=== PATIENT | female | born 1955 | race Caucasian/White ===

== ENCOUNTER 2018-09-06 11:06 | Inpatient (IN) | payer OTHER ==
[2018-09-06 11:18] VITALS: BMI 31.9
--- NOTE | 2018-09-06 11:19 | PDOC ---
History of Present Illness - General Chief Complaint: Chest Pain Stated Complaint: CHEST PAIN Time Seen by Provider: 09/06/18 11:19 - History of Present Illness Initial Comments: 09/06/18 11:43 The patient is a 62 year old female with a history of HLD, GERD who presents for evaluation of shortness of breath and chest pressure. The patient is accompanied by family who assist in providing the history. They note a several day history of worsening shortness of breath with associated chest pressure prompting them to present to the patient's primary care provider Dr. Velasquez and was noted to be in afib with RVR and sent to the ED for further evaluation. The patient denies a history of afib and continues to report shortness of breath and chest pressure. She otherwise denies fevers, chills, nausea, vomiting, lightheadedness, abdominal pain, or changes with urination or bowel movements. Past History - Past Medical History Allergies/Adverse Reactions: Allergies Allergy/AdvReac Type Severity Reaction Status Date / Time No Known Allergies Allergy Verified 09/06/18 13:16 Home Medications: Ambulatory Orders Aspirin [ASA -] 81 mg PO DAILY 09/06/18 Atorvastatin Calcium [Lipitor] 20 mg PO DAILY 09/06/18 Pantoprazole Sodium [Protonix] 40 mg PO DAILY 09/06/18 COPD: No - Immunization History Immunization Up to Date: No - Suicide/Smoking/Psychosocial Hx Smoking History: Never smoked Hx Alcohol Use: No Drug/Substance Use Hx: No Review of Systems - Review of Systems Comments:: 09/06/18 11:47 Constitutional: No fevers, chills, fatigue, malaise HEENT: No Rhinorrhea, nasal congestion, visual changes Cardiovascular: Chest pressure. No syncope, palpitations, lightheadedness Respiratory: SOB. No Cough, Hemoptysis, Gastrointestinal: No Abdominal pain, Nausea, Vomiting, Constipation, Diarrhea, Melena Genitourinary: No Dysuria, Frequency, Urgency, Hesitancy, Hematuria, Flank pain Musculoskeletal: No Myalgia, arthralgia Skin: No rashes, itching, bruising, pallor Neurologic: No Headache, Dizziness, Numbness, Weakness, or Tingling Psychiatric: No Hallucinations. No SI or HI *Physical Exam - Vital Signs Last Vital Signs Temp Pulse Resp BP Pulse Ox 98.5 F 133 H 17 134/60 95 09/06/18 11:14 09/06/18 11:14 09/06/18 11:14 09/06/18 11:14 09/06/18 11:14 - Physical Exam Comments: 09/06/18 11:47 General Appearance: Nourished. No Apparent Distress HEENT: No Pharyngeal Erythema, Tonsillar Exudate, Tonsillar Erythema Neck: No Cervical Lymphadenopathy Respiratory/Chest: Lungs Clear, Normal Breath Sounds. No Crackles, Rales, Rhonchi, Wheezing Cardiovascular: Irregularly Irregular Rhythm, Tachycardic Rate. No Murmur, Gallops, Rubs Gastrointestinal/Abdominal: Normal Bowel Sounds, Soft. No Guarding, Rebound, Tenderness Musculoskeletal: No CVA Tenderness Extremity: Normal Capillary Refill Integumentary: Normal Color, Dry, Warm Neurologic: Fully Oriented, Alert, Normal Mood/Affect, Normal Response, Moderate Sedation - Procedure Monitoring Vital Signs: Procedure Monitoring Vital Signs Temperature 98.5 F 09/06/18 11:14 Pulse Rate 133 H 09/06/18 11:14 Respiratory Rate 17 09/06/18 11:14 Blood Pressure 134/60 09/06/18 11:14 O2 Sat by Pulse Oximetry (%) 95 09/06/18 11:14 Heart Score/ECG Review #1 ECG reviewed & interpreted by me at: 11:48 General ECG Interpretation: Normal Intervals, No acute ischemic changes 09/06/18 11:48 Afib with RVR hr 133 ED Treatment Course - LABORATORY CBC & Chemistry Diagram: 09/06/18 11:42 09/06/18 11:42 Medical Decision Making - Critical Care Time Total Critical Care Time (minutes): 35 Critical Care Statement: The care of this patient involved high complexity decision making to prevent further life threatening deterioration of the patient 's condition and/or to evaluate & treat vital organ system(s) failure or risk of failure. - Medical Decision Making 09/06/18 11:48 The patient is a 62 year old female with a history of HLD, GERD who presents for evaluation of shortness of breath and chest pressure. Given the patient's history and physical exam, it is likely the patient's symptoms are due to afib with rvr. We will obtain a cbc, cmp, troponin, bnp, tsh, ua, chest plain film, ekg to evaluate further. We will treat the patient with 10mg iv cardizem and iv fluids and continue to monitor and reassess while here in the ED. 09/06/18 13:43 CBC, cmp, troponin, bnp is unremarkable. Chest plain film is unremarkable. The patient's HR improved to 100 with cardizem and we have treated with an additional 30 mg PO cardizem. We discussed the case with the admitting team who accepted the patient for admission. We will place the patient on a heparin drip due to her new onset afib. *DC/Admit/Observation/Transfer Diagnosis at time of Disposition: New onset a-fib - Discharge Dispostion Condition at time of disposition: Stable Decision to Admit order: Yes - Referrals - Patient Instructions - Post Discharge Activity
--- NOTE | 2018-09-06 11:31 | PDOC ---
Attending Attestation - HPI HPI: 09/06/18 11:42 The patient is a 62 year old female, with a significant past medical history of intermittent Eliquis use ("only when traveling"), who presents to the emergency department sent by Dr. Velasquez for new onset AFib with associated palpitations, SOB, and midsternal chest pressure this morning. She states she has been feeling intermittently more SOB with walking. She reports intermittent chest pressure associated with fast heart beating for about 3 months. She states she sleeps with one pillow, but denies dyspnea while lying flat. She reportedly travels to and from [facility] frequently with her most recent return being . The patient denies headache and dizziness. The patient denies fever, chills, nausea, vomit, diarrhea and constipation. The patient denies dysuria, frequency , urgency and hematuria. Allergies: NKDA PCP: Dr. Emory Wong - Physicial Exam PE: 09/06/18 11:42 GENERAL: The patient is in no acute distress. HEAD: Normal with no signs of trauma. EYES: PERRLA, EOMI, sclera anicteric, conjunctiva clear. ENT: Ears normal, nares patent, oropharynx clear without exudates. Moist mucous membranes. NECK: Normal range of motion, supple without lymphadenopathy, JVD, or masses. LUNGS: Breath sounds equal, clear to auscultation bilaterally. No wheezes, and no crackles. HEART: (+) irregularly irregular. normal S1 and S2 without murmur, rub or gallop. ABDOMEN: Soft, nontender, normoactive bowel sounds. No guarding, no rebound. No masses palpable. EXTREMITIES: Normal range of motion, no edema. No clubbing or cyanosis. No erythema, or tenderness. NEUROLOGICAL: Cranial nerves II through XII grossly intact. Normal speech. No focal neurological deficits. MUSCULOSKELETAL: Back non-tender to palpation, no CVA tenderness SKIN: Warm, Dry, normal turgor, no rashes or lesions noted. - Medical Decision Making 09/06/18 11:42 Documentation prepared by Marcie Pearson, acting as anesthesiology medical doctor for Sandy Solomon MD <Marcie Pearson - Last Filed: 09/06/18 13:13> - Resident Resident Name: Sebastián Boyce - ED Attending Attestation I have performed the following: I have examined & evaluated the patient, The case was reviewed & discussed with the resident, I agree w/resident's findings & plan, Exceptions are as noted - Medical Decision Making 09/06/18 11:31 EKG - Sfib rate of 133 bpm, axis nml, no st elevation or depression, t waves upright 09/06/18 12:17 Laboratory Tests 09/06/18 09/06/18 11:42 11:42 WBC 7.6 Hgb 14.6 Hct 44.9 Plt Count 276 INR 1.10 H HR: low 100s after cardizem IV cardizem po given CTA negative for PE Pt admitted to Dr. Velasquez trend troponins Clinical impression: new onset Afib, initial presentation <Sandy Solomon - Last Filed: 09/08/18 07:45> *DC/Admit/Observation/Transfer <Marcie Pearson - Last Filed: 09/06/18 13:13> - Discharge Dispostion Decision to Admit order: Yes <Sandy Solomon - Last Filed: 09/08/18 07:45> Diagnosis at time of Disposition: New onset a-fib - Discharge Dispostion Condition at time of disposition: Stable
[2018-09-06] MEDS ORDERED: dilTIAZem HCL 50 MG/10 ML - 10 ML VIAL IVPUSH ONE ×2 (11:33→14:26)
[2018-09-06] MEDS ORDERED: SODIUM CHLORIDE 1,000 ML IV STA (11:33)
--- NOTE | 2018-09-06 11:40 | EKG ---
Test Reason : Blood Pressure : / mmHG Vent. Rate : 133 BPM Atrial Rate : 129 BPM P-R Int : 000 ms QRS Dur : 080 ms QT Int : 300 ms P-R-T Axes : 000 041 016 degrees QTc Int : 446 ms ATRIAL FIBRILLATION WITH RAPID VENTRICULAR RESPONSE ABNORMAL ECG WHEN COMPARED WITH ECG OF 06-MAR-1998 11:36, ATRIAL FIBRILLATION HAS REPLACED SINUS RHYTHM VENT. RATE HAS INCREASED BY 63 BPM Confirmed by SISSY SANDERS, ADAM ([id number]) on 09/06/2018 11:40:18 AM Referred By: Confirmed By:ADAM SHEEHAN MD
[2018-09-06] MEDS ORDERED: dilTIAZem HCL 125 MG/25 ML - 25 ML VIAL ONE (11:45)
[2018-09-06 12:01] LABS: BASO % 3.8 % (0-2.0); EOS % 2.4 % (0-4.5); HEMATOCRIT 44.9 % (32.4-45.2); HEMOGLOBIN 14.6 GM/dL (10.7-15.3); LYMPH % 28.5 % (8-40); MCH 30.5 pg (25.7-33.7); MCHC 32.5 g/dl (32.0-36.0); MEAN PLT VOLUME 10.1 fl (7.5-11.1); MONO % 13.4 % (3.8-10.2); NEUT % 51.9 % (42.8-82.8); PLATELET COUNT 276 K/MM3 (134-434); RBC 4.78 M/mm3 (3.60-5.2); RDW 14.2 % (11.6-15.6); WHITE BLOOD COUNT 7.6 K/mm3 (4.0-10.0)
[2018-09-06 12:13] LABS: INR 1.1 (0.83-1.09)
[2018-09-06 12:15] LABS: ACTIVATED PTT 46.8 SECONDS (25.2-36.5)
[2018-09-06 12:54] LABS: ALBUMIN 3.7 g/dl (3.4-5.0); ALK PHOS 157 U/L (45-117); ANION GAP 7 MMOL/L (8-16); BILIRUBIN,TOTAL 0.7 mg/dL (0.2-1); BLOOD UREA NITROGEN 16 mg/dL (7-18); CALCIUM 8.6 mg/dL (8.5-10.1); CHLORIDE 108 mmol/L (98-107); CO2 25 mmol/L (21-32); CREATININE 0.6 mg/dL (0.55-1.3); GLUCOSE,RANDOM 108 mg/dL (74-106); N-TERMINAL BNP 549.3 pg/ml (5-125); POTASSIUM 4.4 mmol/L (3.5-5.1); SGOT/AST 31 U/L (15-37); SGPT/ALT 62 U/L (13-61); SODIUM 140 mmol/L (136-145); TOT PROT 7.3 g/dl (6.4-8.2)
[2018-09-06] MEDS ORDERED: dilTIAZem HCL 30 MG TABLET (FP) PO ONE (14:00)
[2018-09-06] MEDS ORDERED: dilTIAZem HCL 30 MG TABLET (FP) ONE (14:20)
[2018-09-06 14:24] LABS: URINE APPEARANCE CLEAR; URINE BILIRUBIN NEGATIVE (<2.0 mg/dL); URINE COLOR STRAW; URINE GLUCOSE (UA) NEGATIVE (NEGATIVE); URINE KETONE NEGATIVE (NEGATIVE); URINE LEUK ESTERASE NEGATIVE (NEGATIVE); URINE NITRITE NEGATIVE (NEGATIVE); URINE PROTEIN NEGATIVE (NEGATIVE); URINE UROBILINOGEN NEGATIVE mg/dL (0.2-1.0)
[2018-09-06] MEDS ORDERED: FLU VACCINE QUAD 60 MCG/0.5 ML (MDV 18-19) IM ONE (18:16)
[2018-09-06] MEDS ORDERED: HEPARIN NA (PORCINE) 5,000 UNITS/ML 1ML VIAL IVPUSH PRN ×2 (18:45)
[2018-09-06] MEDS ORDERED: HEPARIN - 25,000 UNIT in SODIUM CHLORIDE 495 ML IV SCH (19:00)
--- NOTE | 2018-09-06 19:16 | HP ---
Admitting History and Physical - Admission History of Present Illness: The patient is a 62 year old female with a history of HLD, GERD, lymphoma who presented for evaluation of shortness of breath and chest pressure. The patient is accompanied by family who assist in providing the history. They note a several day history of worsening shortness of breath with associated chest pressure prompting them to present to the patient's primary care provider Dr. Velasquez and was noted to be in afib with RVR and sent to the ED for further evaluation. The patient denies a history of afib and continues to report shortness of breath and chest pressure. She otherwise denies fevers, chills, nausea, vomiting, lightheadedness, abdominal pain, or changes with urination or bowel movements. - Past Medical History Cardiovascular: Yes: HTN, Hyperlipdemia Gastrointestinal: Yes: GERD Heme/Onc: Yes: Other (Lymphoma) - Smoking History Smoking history: Never smoked - Alcohol/Substance Use Hx Alcohol Use: No Home Medications - Allergies Allergies/Adverse Reactions: Allergies Allergy/AdvReac Type Severity Reaction Status Date / Time No Known Allergies Allergy Verified 09/06/18 13:16 - Home Medications Home Medications: Ambulatory Orders Aspirin [ASA -] 81 mg PO DAILY 09/06/18 Atorvastatin Calcium [Lipitor] 20 mg PO DAILY 09/06/18 Pantoprazole Sodium [Protonix] 40 mg PO DAILY 09/06/18 Apixaban [Eliquis -] 5 mg PO BID #60 tablet 09/08/18 Metoprolol Succinate [Toprol XL -] 25 mg PO BID #60 tab.sr.24h 09/08/18 Family Disease History - Family Disease History Family History: Unremarkable Review of Systems - Review of Systems Constitutional: reports: No Symptoms Eyes: reports: No Symptoms HENT: reports: No Symptoms Neck: reports: No Symptoms Cardiovascular: reports: Chest Pain, Palpitations, Shortness of Breath Respiratory: reports: SOB Gastrointestinal: reports: No Symptoms Physical Examination Vital Signs: Vital Signs Temperature 98 F 09/06/18 15:45 Pulse Rate 108 H 09/06/18 15:45 Respiratory Rate 20 09/06/18 16:43 Blood Pressure 84/60 L 09/06/18 15:45 O2 Sat by Pulse Oximetry (%) 96 09/06/18 16:43 Constitutional: Yes: No Distress HENT: Yes: WNL Neck: Yes: WNL, Supple Cardiovascular: Yes: Tachycardia, Pulse Irregular Respiratory: Yes: WNL, Regular, CTA Bilaterally Gastrointestinal: Yes: WNL, Normal Bowel Sounds, Soft Labs: CBC, BMP 09/06/18 11:42 09/06/18 11:42 Problem List - Problems (1) New onset a-fib Assessment/Plan: Rate elevate Pt was given cardizem in ER Admit to [facility] Serial cpk/troponin Cardio consult Check echo Code(s): I48.91 - UNSPECIFIED ATRIAL FIBRILLATION (2) Lymphoma Assessment/Plan: Check CT scan abd/pelvis Onco consult Code(s): C85.90 - NON-HODGKIN LYMPHOMA, UNSPECIFIED, UNSPECIFIED SITE (3) Hyperlipidemia Code(s): E78.5 - HYPERLIPIDEMIA, UNSPECIFIED Qualifiers: Hyperlipidemia type: pure hypercholesterolemia Qualified Code(s): E78.00 - Pure hypercholesterolemia, unspecified; E78.0 - Pure hypercholesterolemia (4) S/P splenectomy Code(s): Z90.81 - ACQUIRED ABSENCE OF SPLEEN (5) Dyspnea Assessment/Plan: CTA chest was negative for PE Code(s): R06.00 - DYSPNEA, UNSPECIFIED
[2018-09-06] MEDS ORDERED: ASPIRIN 81 MG CHEWABLE TABLETS PO SCH (19:30)
[2018-09-06] MEDS ORDERED: HEPARIN NA (PORCINE) 5,000 UNITS/ML 1ML VIAL SQ SCH (19:30)
--- NOTE | 2018-09-06 20:27 | CON.CARD ---
Consult Consult Specialty:: cardiology Reason for Consultation:: atrial fibrillation - History of Present Illness History of Present Illness: The patient is a 62 year old white female (b. 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 Velasquez for new onset AFib with associated palpitations, SOB, and midsternal chest pressure this morning. She states she has been feeling intermittently more SOB with walking. She reports intermittent chest pressure associated with fast heart beating for about 3 months. She states she sleeps with one pillow, but denies dyspnea while lying flat. She reportedly travels to and from [facility] frequently with her most recent return being 08/23/18. Occarional bilatera mild ankle swelling. The patient denies headache and dizziness. The patient denies fever, chills, nausea, vomit, diarrhea and constipation. The patient denies dysuria, frequency , urgency and hematuria. Allergies: NKDA PCP: Dr. Emory Wong - History Source History Provided By: Patient, Family Member, Medical Record Limitations to Obtaining History: No Limitations - Alcohol/Substance Use Hx Alcohol Use: No - Smoking History Smoking history: Never smoked Home Medications - Allergies Allergies/Adverse Reactions: Allergies Allergy/AdvReac Type Severity Reaction Status Date / Time No Known Allergies Allergy Verified 09/06/18 13:16 - Home Medications Home Medications: Ambulatory Orders Aspirin [ASA -] 81 mg PO DAILY 09/06/18 Atorvastatin Calcium [Lipitor] 20 mg PO DAILY 09/06/18 Pantoprazole Sodium [Protonix] 40 mg PO DAILY 09/06/18 Vital Signs: Vital Signs Temperature 98 F 09/06/18 15:45 Pulse Rate 108 H 09/06/18 15:45 Respiratory Rate 20 09/06/18 16:43 Blood Pressure 84/60 L 09/06/18 15:45 O2 Sat by Pulse Oximetry (%) 96 09/06/18 16:43 - Other Data Labs, Other Data: CBC, BMP 09/06/18 11:42 09/06/18 11:42 INR, PTT INR 1.10 (0.83-1.09) H 09/06/18 11:42 Troponin, BNP 09/06/18 11:42 Troponin I < 0.02 B-Natriuretic Peptide 549.3 H Troponin, BNP 09/06/18 11:42 Troponin I < 0.02 B-Natriuretic Peptide 549.3 H Problem List - Problems (1) WPW (Ftlcm-Vavfyjpvo-Tqkqh syndrome) Assessment/Plan: According to pt's daughter, pt's brother of WPW in his 30s. F?u EKG when HR better-controlled (and, ideally, in NSR); f/u records from prior office visits. Code(s): I45.6 - PRE-EXCITATION SYNDROME (2) New onset a-fib Assessment/Plan: Start PO diltiazem (change to metoprolol if LVEF is significantly reduced; f/u ECHO). Start apixaban for anticoagulation. Serial EKGs; telemetry. F/u record of stress MIBI (?done 3-4 yrs ago). TSH WNL. Hb WNL. Code(s): I48.91 - UNSPECIFIED ATRIAL FIBRILLATION (3) Obesity Code(s): E66.9 - OBESITY, UNSPECIFIED (4) Fatty liver Code(s): K76.0 - FATTY (CHANGE OF) LIVER, NOT ELSEWHERE CLASSIFIED (5) S/P splenectomy Code(s): Z90.81 - ACQUIRED ABSENCE OF SPLEEN (6) Hyperlipidemia Assessment/Plan: f/u lipid panel. Pt is on atorvastatin. Code(s): E78.5 - HYPERLIPIDEMIA, UNSPECIFIED
[2018-09-06] MEDS: ATORVASTATIN CA 20 MG TABLET (FP) PO SCH (21:06)
[2018-09-06] MEDS: dilTIAZem HCL 30 MG TABLET (FP) PO SCH (21:06)
[2018-09-06] MEDS: PANTOPRAZOLE 40 MG TABLET (FP) PO SCH (21:06)
[2018-09-06] MEDS: metoPROLOL SUCCINATE 25 MG TAB.SR.24H (FP) PO SCH (21:06)
[2018-09-06] MEDS: APIXABAN 5 MG TABLET PO SCH (21:06)
[2018-09-06] MEDS ORDERED: ACETAMINOPHEN 325 MG TABLET (FP) PO ONE (21:15)
[2018-09-07] MEDS: dilTIAZem HCL 30 MG TABLET (FP) PO SCH ×5 (01:00→23:38)
[2018-09-07 07:03] LABS: BASO % 0.6 % (0-2.0); EOS % 2.7 % (0-4.5); HEMATOCRIT 43.2 % (32.4-45.2); LYMPH % 39.9 % (8-40); MCH 30.5 pg (25.7-33.7); MCHC 32.3 g/dl (32.0-36.0); MEAN CELL VOLUME 94.4 fl (80-96); MEAN PLT VOLUME 10.5 fl (7.5-11.1); MONO % 14.3 % (3.8-10.2); NEUT % 42.5 % (42.8-82.8); PLATELET COUNT 273 K/MM3 (134-434); RBC 4.58 M/mm3 (3.60-5.2); RDW 14.4 % (11.6-15.6); WHITE BLOOD COUNT 5.9 K/mm3 (4.0-10.0)
[2018-09-07 07:24] LABS: ALBUMIN 3.4 g/dl (3.4-5.0); ALK PHOS 143 U/L (45-117); ANION GAP 9 MMOL/L (8-16); BILIRUBIN,TOTAL 0.8 mg/dL (0.2-1); BLOOD UREA NITROGEN 17 mg/dL (7-18); CALCIUM 8.4 mg/dL (8.5-10.1); CHLORIDE 107 mmol/L (98-107); CHOLESTEROL 169 mg/dL (50-200); CO2 23 mmol/L (21-32); CREATININE 0.6 mg/dL (0.55-1.3); GLUCOSE,RANDOM 104 mg/dL (74-106); HDL CHOLESTEROL 29 mg/dL (40-60); POTASSIUM 4.5 mmol/L (3.5-5.1); SGOT/AST 28 U/L (15-37); SGPT/ALT 51 U/L (13-61); SODIUM 139 mmol/L (136-145); TOT PROT 6.7 g/dl (6.4-8.2); TRIGLYCERIDES 140 mg/dL (0-150)
--- NOTE | 2018-09-07 10:21 | PN ---
Progress Note, Physician Chief Complaint: Cardiology coverage for Dr. Wong History of Present Illness: Afib is rate-controlled with resolution of associated palpitations, SOB with exertion, and midsternal chest pressure. Allergies: NKDA PCP: Dr. Emory Wong - Current Medication List Current Medications: Active Medications Apixaban (Eliquis -) 5 mg PO BID [facility] Last Admin: 09/06/18 21:06 Dose: 5 mg Aspirin (Asa -) 81 mg PO DAILY [facility] Last Admin: 09/06/18 21:06 Dose: 81 mg Atorvastatin Calcium (Lipitor -) 20 mg PO HS [facility] Last Admin: 09/06/18 21:06 Dose: 20 mg Diltiazem HCl (Cardizem -) 30 mg PO Q6HPO [facility] Last Admin: 09/07/18 06:56 Dose: 30 mg Metoprolol Succinate (Toprol Xl -) 25 mg PO BID [facility] Last Admin: 09/06/18 21:06 Dose: 25 mg Pantoprazole Sodium (Protonix -) 40 mg PO DAILY [facility] Last Admin: 09/06/18 21:06 Dose: 40 mg - Objective Vital Signs: Vital Signs Temperature 98.1 F 09/07/18 06:00 Pulse Rate 92 H 09/07/18 09:00 Respiratory Rate 18 09/07/18 09:00 Blood Pressure 94/52 L 09/07/18 09:00 O2 Sat by Pulse Oximetry (%) 96 09/06/18 21:00 Constitutional: Yes: No Distress, Calm Neck: Yes: Supple Cardiovascular: Yes: Pulse Irregular Respiratory: Yes: Regular, Diminished, On Nasal O2 Gastrointestinal: Yes: Normal Bowel Sounds, Soft Edema: No Labs: CBC, BMP 09/07/18 05:30 09/07/18 06:00 INR, PTT INR 1.10 (0.83-1.09) H 09/06/18 11:42 - ....Imaging EKG: Report Reviewed (Tele: Rate-controlled afib) Problem List - Problems (1) Hyperlipidemia Code(s): E78.5 - HYPERLIPIDEMIA, UNSPECIFIED Qualifiers: Hyperlipidemia type: pure hypercholesterolemia Qualified Code(s): E78.00 - Pure hypercholesterolemia, unspecified; E78.0 - Pure hypercholesterolemia (2) New onset a-fib Code(s): I48.91 - UNSPECIFIED ATRIAL FIBRILLATION (3) S/P splenectomy Code(s): Z90.81 - ACQUIRED ABSENCE OF SPLEEN Assessment/Plan 1. Newly diagnosed atrial fibrillation 2. Family h/o WPW in patient's brother who of WPW in his 30s per daughter 3. Hyperlipidemia 4. Fatty liver 5. Obesity 6. s/p splenectomy P:1. F/u echo 2. D/c ASA, continue Eliquis 5 bid, Lipitor 20 qhd, Toprol and Cardizem pending LV fxn assessment 3. Consideration for DCCV as outpatient with Dr. Wong after several weeks of Eliquis treatment 4. Thank you for consultative opportunity
[2018-09-07] MEDS: PANTOPRAZOLE 40 MG TABLET (FP) PO SCH (11:17)
[2018-09-07] MEDS: APIXABAN 5 MG TABLET PO SCH ×2 (11:17→21:25)
[2018-09-07] MEDS: metoPROLOL SUCCINATE 25 MG TAB.SR.24H (FP) PO SCH ×2 (11:17→21:25)
--- NOTE | 2018-09-07 15:20 | ECHO ---
Name: LIVIER GUARDADO Exam:Adult Echocardiogram Study Date: 09/07/2018 08:55 AM Age: 62 yrs Reason For Study: a fib Height: 61 in Weight: 169 lb BSA: 1.8 m2 MMode/2D Measurements & Calculations RVDd: 2.9 cm Ao root diam: 2.8 cm IVSd: 0.87 cm LA dimension: 4.7 cm LVIDd: 4.0 cm ACS: 1.7 cm LVIDs: 2.3 cm LVPWd: 0.89 cm IVSs: 1.0 cm LVPWs: 1.1 cm EDV(Teich): 70.8 ml ESV(Teich): 19.0 ml Doppler Measurements & Calculations Ao V2 max: 135.7 cm/sec TR max vasu: 190.7 cm/sec Ao max P.4 mmHg TR max P.7 mmHg Ao V2 mean: 108.8 cm/sec Ao mean P.0 mmHg Ao V2 VTI: 28.0 cm Procedure A complete two-dimensional transthoracic echocardiogram was performed (2D, M-mode, Doppler and color flow Doppler). Left Ventricle The left ventricular size, thickness and function are normal. The left ventricular ejection fraction is normal. Ejection Fraction = 60-65%. The left ventricular wall motion is normal. Right Ventricle The right ventricle is normal in size and function. Atria Normal left and right atrial size and function. Mitral Valve There is no mitral regurgitation noted. Tricuspid Valve There is trace tricuspid regurgitation. There was insufficient TR detected to calculate RV systolic p ressure. Aortic Valve No hemodynamically significant valvular aortic stenosis. No aortic regurgitation is present. Pulmonic Valve There is no pulmonic valvular regurgitation. Great Vessels The aortic root is normal size. Pericardium/Pleura There is no pericardial effusion. Interpretation Summary The left ventricular size, thickness and function are normal The right ventricle is normal in size and function. There is trace tricuspid regurgitation. MD David Renee 09/07/2018 03:19 PM
--- NOTE | 2018-09-07 16:16 | EKG ---
Test Reason : Blood Pressure : / mmHG Vent. Rate : 085 BPM Atrial Rate : 300 BPM P-R Int : 000 ms QRS Dur : 084 ms QT Int : 366 ms P-R-T Axes : 000 057 050 degrees QTc Int : 435 ms ATRIAL FIBRILLATION ABNORMAL ECG WHEN COMPARED WITH ECG OF 06-SEP-2018 11:10, VENT. RATE HAS DECREASED BY 48 BPM Confirmed by LC LOBO MD ([id number]) on 09/07/2018 4:16:09 PM Referred By: Confirmed By:LC LOBO MD
--- NOTE | 2018-09-07 19:11 | CONSULT ---
Consult - text type - Consultation Consultation Note: The patient is a 62 year old white female with a significant past medical history of intermittent Eliquis use ("only when traveling"; daugther reports it being to prevent LE blood clots), hx l"fatty liver and cirrhosis (never drank alcohol; denies hepatitis); lympphoma-->splenectomy,2 yrs.ago, family hx WPW ( a brother in his 30s of this), 2nd brother in his 50s of an ?[place]), who presents to the emergency department sent by Dr. Velasquez for new onset AFib with associated palpitations, SOB, and midsternal chest pressure this morning. She states she has been feeling intermittently more SOB with walking. The patient denies fever, chills, nausea, vomit, diarrhea and constipation. Allergies: NKDA - History Source History Provided By: Patient, Family Member, Medical Record - Smoking History Smoking history: Never smoked - Allergies Allergies/Adverse Reactions: Allergies Allergy/AdvReac Type Severity Reaction Status Date / Time No Known Allergies Allergy Verified 09/06/18 13:16 - Home Medications Home Medications: Ambulatory Orders Aspirin [ASA -] 81 mg PO DAILY 09/06/18 Atorvastatin Calcium [Lipitor] 20 mg PO DAILY 09/06/18 Pantoprazole Sodium [Protonix] 40 mg PO DAILY 09/06/18 Vital Signs: Last Vital Signs Temp Pulse Resp BP Pulse Ox 97.7 F 72 18 115/63 96 09/07/18 14:00 09/07/18 18:34 09/07/18 18:34 09/07/18 18:34 09/06/18 21:00 Cor: RSR, No murmurs, No gallops Lungs: Clear to P&A Abd: Soft, Normal bowel sounds, No organomegaly Ext:No significant edema Abnormal Lab Results 09/07/18 09/07/18 05:30 06:00 Neutrophils % 42.5 L Monocytes % 14.3 H Nucleated RBC % 1 H Calcium 8.4 L Alkaline Phosphatase 143 H Total LDL Cholesterol 121 H HDL Cholesterol 29 L Active Medications Generic Name Dose Route Start Last Admin Trade Name Freq PRN Reason Stop Dose Admin Apixaban 5 mg 09/06/18 22:00 09/07/18 21:25 Eliquis - PO 5 mg BID SERGIO Administration Atorvastatin Calcium 20 mg 09/06/18 22:00 09/07/18 21:25 Lipitor - PO 20 mg HS SERGIO Administration Diltiazem HCl 30 mg 09/06/18 22:00 09/07/18 17:30 Cardizem - PO 30 mg Q6HPO SERGIO Administration Metoprolol Succinate 25 mg 09/06/18 22:00 09/07/18 21:25 Toprol Xl - PO 25 mg BID SERGIO Administration Pantoprazole Sodium 40 mg 09/06/18 19:30 09/07/18 11:17 Protonix - PO 40 mg DAILY SERGIO Administration A/P 62 y/o patient with h/o splenectony for lymhoma 2 yrs. ago when she presented with autoimmune cytopenia? Now with afib CT chest with extensive abdominal adenopatht will check CT a/p Check flowcytometry/LDH/ESR/CRP/Hep. serologies May need biopsy will follow
[2018-09-07] MEDS: ATORVASTATIN CA 20 MG TABLET (FP) PO SCH (21:25)
--- NOTE | 2018-09-07 23:36 | PN ---
Progress Note, Physician History of Present Illness: Pt feeling better No further chest pain or palpitations/SOB - Current Medication List Current Medications: Active Medications Apixaban (Eliquis -) 5 mg PO BID [facility] Last Admin: 09/07/18 21:25 Dose: 5 mg Atorvastatin Calcium (Lipitor -) 20 mg PO HS [facility] Last Admin: 09/07/18 21:25 Dose: 20 mg Diltiazem HCl (Cardizem -) 30 mg PO Q6HPO [facility] Last Admin: 09/07/18 17:30 Dose: 30 mg Metoprolol Succinate (Toprol Xl -) 25 mg PO BID [facility] Last Admin: 09/07/18 21:25 Dose: 25 mg Pantoprazole Sodium (Protonix -) 40 mg PO DAILY [facility] Last Admin: 09/07/18 11:17 Dose: 40 mg - Objective Vital Signs: Vital Signs Temperature 97.7 F 09/07/18 14:00 Pulse Rate 72 09/07/18 18:34 Respiratory Rate 18 09/07/18 18:34 Blood Pressure 115/63 09/07/18 18:34 O2 Sat by Pulse Oximetry (%) 96 09/06/18 21:00 Neck: Yes: WNL, Supple Cardiovascular: Yes: Pulse Irregular Respiratory: Yes: WNL, Regular, CTA Bilaterally Gastrointestinal: Yes: WNL, Normal Bowel Sounds, Soft Labs: CBC, BMP 09/07/18 05:30 09/07/18 06:00 INR, PTT INR 1.10 (0.83-1.09) H 09/06/18 11:42 Problem List - Problems (1) New onset a-fib Assessment/Plan: Rate better controlled Cont eliquis Possible dc planning for am Code(s): I48.91 - UNSPECIFIED ATRIAL FIBRILLATION (2) Hyperlipidemia Code(s): E78.5 - HYPERLIPIDEMIA, UNSPECIFIED Qualifiers: Hyperlipidemia type: pure hypercholesterolemia Qualified Code(s): E78.00 - Pure hypercholesterolemia, unspecified; E78.0 - Pure hypercholesterolemia (3) Lymphoma Assessment/Plan: CT scan abd/pelvis showed lymphadenopathy Onco consult Code(s): C85.90 - NON-HODGKIN LYMPHOMA, UNSPECIFIED, UNSPECIFIED SITE (4) S/P splenectomy Code(s): Z90.81 - ACQUIRED ABSENCE OF SPLEEN
[2018-09-08 02:23] VITALS: TEMP 98.1
[2018-09-08] MEDS: dilTIAZem HCL 30 MG TABLET (FP) PO SCH ×2 (06:32→11:16)
[2018-09-08] MEDS: PANTOPRAZOLE 40 MG TABLET (FP) PO SCH (11:16)
[2018-09-08] MEDS: APIXABAN 5 MG TABLET PO SCH (11:16)
[2018-09-08] MEDS: metoPROLOL SUCCINATE 25 MG TAB.SR.24H (FP) PO SCH (11:16)
--- NOTE | 2018-09-08 12:17 | PN ---
Progress Note, Physician Chief Complaint: Cardiology coverage for Dr. Wong History of Present Illness: Afib is rate-controlled and she is now asymptomatic. Allergies: NKDA PCP: Dr. mEory Wong - Current Medication List Current Medications: Active Medications Apixaban (Eliquis -) 5 mg PO BID [facility] Last Admin: 09/08/18 11:16 Dose: 5 mg Atorvastatin Calcium (Lipitor -) 20 mg PO HS [facility] Last Admin: 09/07/18 21:25 Dose: 20 mg Diltiazem HCl (Cardizem -) 30 mg PO Q6HPO [facility] Last Admin: 09/08/18 11:16 Dose: 30 mg Metoprolol Succinate (Toprol Xl -) 25 mg PO BID [facility] Last Admin: 09/08/18 11:16 Dose: 25 mg Pantoprazole Sodium (Protonix -) 40 mg PO DAILY [facility] Last Admin: 09/08/18 11:16 Dose: 40 mg - Objective Vital Signs: Vital Signs Temperature 98.1 F 09/08/18 02:00 Pulse Rate 83 09/08/18 02:00 Respiratory Rate 18 09/08/18 02:00 Blood Pressure 109/60 09/08/18 02:00 O2 Sat by Pulse Oximetry (%) 96 09/07/18 21:00 Constitutional: Yes: No Distress, Calm Neck: Yes: Supple Cardiovascular: Yes: Tachycardia, Pulse Irregular Respiratory: Yes: Regular, CTA Bilaterally Gastrointestinal: Yes: Normal Bowel Sounds, Soft Edema: No Labs: CBC, BMP 09/07/18 05:30 09/07/18 06:00 INR, PTT INR 1.10 (0.83-1.09) H 09/06/18 11:42 Problem List - Problems (1) Hyperlipidemia Code(s): E78.5 - HYPERLIPIDEMIA, UNSPECIFIED Qualifiers: Hyperlipidemia type: pure hypercholesterolemia Qualified Code(s): E78.00 - Pure hypercholesterolemia, unspecified; E78.0 - Pure hypercholesterolemia (2) New onset a-fib Code(s): I48.91 - UNSPECIFIED ATRIAL FIBRILLATION (3) S/P splenectomy Code(s): Z90.81 - ACQUIRED ABSENCE OF SPLEEN Assessment/Plan 09/07/2018 Echo: Normal biventricular size and fxn. tr TR 1. Newly diagnosed atrial fibrillation rate-controlled 2. Family h/o WPW in patient's brother who of WPW in his 30s per daughter 3. Hyperlipidemia 4. Fatty liver 5. s/p splenectomy for lymphoma, now CT chest with extensive abdominal adenopathy P:1. F/u CT a/p 2. Continue Eliquis 5 bid, Lipitor 20 qhs, Lopressor 25 bid 3. Consideration for DCCV as outpatient with Dr. Wong after at least 3 weeks of Eliquis treatment 4. Check flow cytometry/LDH/ESR/CRP/Hep. serologies, may need biopsy
[2018-09-08 13:50] VITALS: BP 90/50; PULSE 86
[2018-09-08] MEDS ORDERED: METOPROLOL TARTRATE 25 MG TABLET (FP) PO SCH (22:00)
--- NOTE | 2018-09-11 15:33 | PATH ---
Surgical Pathology Report Patient Name: ROSSY GUARDADO [facility]. Rec. #: [id number] /Age/Gender: 1955 (Age: 62) / F Account: [id number] Location: 4 W TELEMETRY U Taken: 09/08/2018 Received: 09/08/2018 Reported: 09/11/2018 Physicians: Scotty Collins M.D. Specimen(s) Received PERIPHERAL BLOOD Clinical History History of lymphoma Final Diagnosis COMPREHENSIVE FLOW PANEL performed and interpreted at [facility] [place], [place] ([id number]) shows the following: INTERPRETATION: There is no evidence of B or T-cell proliferative disorders or increased blasts. The monocytic cells are 10% of total events. Comment: FISH and cytogenetics pending, and will be reported separately. See [facility] report ([id number]) for additional details. Electronically Signed Rossy Gonzalez M.D. Addendum Reported: 09/12/2018 Addendum Diagnosis LYMPHOMA FISH PANEL performed and interpreted at [facility] ([id number]) shows the following: INTERPRETATION: No IGH/BCL2 t(14;18) translocation is detected. No CCND1/IGH t(11;14) translocation is detected. No MYC (8q24) rearrangement is detected. No BCL6 (3q27) rearrangement is detected. See [facility] report for additional details ([id number]) Rossy Gonzalez M.D. Addendum Reported: 09/15/2018 Addendum Diagnosis CYTOGENETIC KARYOTYPE ANALYSIS performed and interpreted at [facility] ([id number]) shows the following: RESULTS: 46, XX [18] INTERPRETATION: Normal Karyotype This peripheral blood specimen produced only eighteen analyzable metaphase cells (a complete analysis consists of twenty cells). Although chromosome morphology and band resolution are somewhat sub-optimal, no consistent numerical or structural chromosome abnormalities were observed. A repeat bone marrow sample, when clinically appropriate, may produce additional cytogenetic information and is recommended. This normal result does not rule out a neoplasm. Subtle rearrangements or the presence of an aberrant clone in a low proportion of cells cannot be ruled out. Correlation with other clinical and hematologic data is suggested. Analysis was performed on cells from a tissue culture that was stimulated with lymphoid mitogens. See [facility] report for additional details ([id number]). Rossy Gonzalez M.D. Gross Description Received are 2 green top tubes of peripheral blood which are sent to [facility]. 09/08/2018 saudi09/08/2018
== END 2018-09-08 17:32 | disposition home or self-care (01) | DRG 310 ==
LOC: JER 11:06 → JERBED 12:18 → J4W 15:38 → OBSVTOIN 19:16
PROVIDERS: ADMIT Internal Medicine; ATTEND Internal Medicine
DX: I48.91 Unspecified atrial fibrillation (principal); E66.9 Obesity, unspecified; K76.0 Fatty (change of) liver, not elsewhere classified; Z90.81 Acquired absence of spleen; E78.5 Hyperlipidemia, unspecified; I45.6 Pre-excitation syndrome; Z68.31 Body mass index [BMI] 31.0-31.9, adult; K21.9 Gastro-esophageal reflux disease without esophagitis
CPT/HCPCS: 36415; 71045-TC-FY; 71275-TC; 74177-TC; 80053; 80061; 81003; 82550; 83721; 83880; 84443; 84484; 85025; 85379; 85610; 85730; 88300-TC; 90688; 93005; 93010; 93306-TC; 93880-TC; 99285-25; G0008; G0378; J7030

== ENCOUNTER 2018-12-15 07:06 | Day surgery (SDC) | payer OTHER ==
[2018-12-15 09:44] LABS: BASO % 1.5 % (0-2.0); EOS % 2.2 % (0-4.5); HEMATOCRIT 40.7 % (32.4-45.2); HEMOGLOBIN 13.7 GM/dL (10.7-15.3); LYMPH % 34.6 % (8-40); MCH 32.9 pg (25.7-33.7); MCHC 33.5 g/dl (32.0-36.0); MEAN PLT VOLUME 10.8 fl (7.5-11.1); MONO % 10.6 % (3.8-10.2); NEUT % 51.1 % (42.8-82.8); PLATELET COUNT 264 K/MM3 (134-434); RBC 4.16 M/mm3 (3.60-5.2); RDW 14.8 % (11.6-15.6); WHITE BLOOD COUNT 5.7 K/mm3 (4.0-10.0)
[2018-12-15] MEDS ORDERED: SODIUM CHLORIDE 1,000 ML IV SCH ×2 (10:30→19:30)
[2018-12-15 11:04] LABS: ALBUMIN 3.7 g/dl (3.4-5.0); ALK PHOS 134 U/L (45-117); ANION GAP 7 MMOL/L (8-16); BILIRUBIN,TOTAL 0.6 mg/dL (0.2-1); BLOOD UREA NITROGEN 18 mg/dL (7-18); CALCIUM 8.5 mg/dL (8.5-10.1); CHLORIDE 106 mmol/L (98-107); CO2 26 mmol/L (21-32); CREATININE 0.6 mg/dL (0.55-1.3); GLUCOSE,RANDOM 175 mg/dL (74-106); POTASSIUM 4.8 mmol/L (3.5-5.1); SGOT/AST 43 U/L (15-37); SGPT/ALT 33 U/L (13-61); SODIUM 140 mmol/L (136-145); TOT PROT 7.2 g/dl (6.4-8.2)
[2018-12-15 11:12] LABS: LDH 526 U/L (84-246)
[2018-12-15] MEDS ORDERED: DIPHENHYDRAMINE 50 MG, DEXAMETHASONE INJECTION 20 MG in SODIUM CHLORIDE 100 ML IVPB ONE (12:30)
[2018-12-15] MEDS ORDERED: ACETAMINOPHEN 325 MG TABLET (FP) PO ONE (12:30)
[2018-12-15] MEDS ORDERED: RITUXIMAB IVPB ONE (13:00)
[2018-12-15] MEDS ORDERED: SODIUM CHLORIDE IVPB ONE (13:00)
[2018-12-15] MEDS ORDERED: DEXAMETHASONE SOD PHOSPHATE 4 MG/1 ML VIAL IVPB ONE (14:34)
[2018-12-15] MEDS ORDERED: ALLOPURINOL 300 MG TABLET (FP) PO ONE (17:03)
[2018-12-15] MEDS ORDERED: PANTOPRAZOLE 40 MG TABLET (FP) PO ONE (17:04)
[2018-12-15] MEDS ORDERED: PT OWN MED DRAWER 7, Y5N ONE (21:26)
[2018-12-15] MEDS: APIXABAN 5 MG TABLET PO SCH (21:56)
[2018-12-15] MEDS ORDERED: METOPROLOL TARTRATE 25 MG TABLET (FP) PO SCH (22:00)
[2018-12-15] MEDS ORDERED: ATORVASTATIN CA 20 MG TABLET (FP) PO SCH (22:00)
[2018-12-16 07:27] LABS: BASO % 0.1 % (0-2.0); HEMATOCRIT 34.5 % (32.4-45.2); HEMOGLOBIN 11.6 GM/dL (10.7-15.3); LYMPH % 4.5 % (8-40); MCH 32.5 pg (25.7-33.7); MCHC 33.7 g/dl (32.0-36.0); MEAN CELL VOLUME 96.6 fl (80-96); MEAN PLT VOLUME 10.9 fl (7.5-11.1); MONO % 2.8 % (3.8-10.2); NEUT % 92.6 % (42.8-82.8); PLATELET COUNT 230 K/MM3 (134-434); RBC 3.58 M/mm3 (3.60-5.2); RDW 14.7 % (11.6-15.6); WHITE BLOOD COUNT 10.5 K/mm3 (4.0-10.0)
[2018-12-16 07:58] LABS: ALBUMIN 3.2 g/dl (3.4-5.0); ALK PHOS 110 U/L (45-117); ANION GAP 8 MMOL/L (8-16); BILIRUBIN,TOTAL 0.5 mg/dL (0.2-1); BLOOD UREA NITROGEN 16 mg/dL (7-18); CALCIUM 8.7 mg/dL (8.5-10.1); CHLORIDE 110 mmol/L (98-107); CO2 22 mmol/L (21-32); CREATININE 0.5 mg/dL (0.55-1.3); GLUCOSE,RANDOM 153 mg/dL (74-106); LDH 741 U/L (84-246); POTASSIUM 4.3 mmol/L (3.5-5.1); SGOT/AST 64 U/L (15-37); SGPT/ALT 33 U/L (13-61); SODIUM 140 mmol/L (136-145); TOT PROT 6.3 g/dl (6.4-8.2)
[2018-12-16] MEDS ORDERED: SODIUM CHLORIDE 250 ML IV STA (09:13)
[2018-12-16 09:32] LABS: ANISOCYTOSIS 1+; MACROCYTOSIS 0; PLATELET ESTIMATE NORMAL
[2018-12-16] MEDS ORDERED: PT OWN MED DRAWER 7, Y5N ONE (09:40)
[2018-12-16] MEDS: APIXABAN 5 MG TABLET PO SCH (09:54)
[2018-12-16] MEDS: METOPROLOL TARTRATE 25 MG TABLET (FP) PO SCH ×2 (09:59→10:00)
[2018-12-16] MEDS ORDERED: PANTOPRAZOLE 40 MG TABLET (FP) PO SCH (10:00)
[2018-12-16] MEDS ORDERED: ALLOPURINOL 300 MG TABLET (FP) PO SCH (10:00)
[2018-12-16 12:08] VITALS: BP 108/54; PULSE 68; TEMP 98
== END 2018-12-16 13:39 | disposition home or self-care (01) ==
LOC: JONCCHEMO 07:06 → J7W 10:06 → JONCCHEMO 12-16 13:39
PROVIDERS: ATTEND Internal Medicine Hematology & Oncology
DX: Z51.11 Encounter for antineoplastic chemotherapy (principal); C85.83 Other specified types of non-Hodgkin lymphoma, intra-abdominal lymph nodes
CPT/HCPCS: 36415; 80053; 82550; 82955; 83615; 84550; 85025; 85041; 87350; 96361; 96367; 96375; 96413; 96415; J1100; J7030; J9312

== ENCOUNTER 2018-12-22 07:00 | Day surgery (SDC) | payer OTHER ==
[2018-12-22] MEDS ORDERED: SODIUM CHLORIDE 1,000 ML IV ONE (08:00)
[2018-12-22 09:26] LABS: BASO % 0.7 % (0-2.0); EOS % 2.1 % (0-4.5); HEMATOCRIT 41.2 % (32.4-45.2); HEMOGLOBIN 13.5 GM/dL (10.7-15.3); LYMPH % 31.5 % (8-40); MCH 32.7 pg (25.7-33.7); MCHC 32.9 g/dl (32.0-36.0); MEAN CELL VOLUME 99.6 fl (80-96); MONO % 14.8 % (3.8-10.2); NEUT % 50.9 % (42.8-82.8); PLATELET COUNT 275 K/MM3 (134-434); RBC 4.14 M/mm3 (3.60-5.2); RDW 15.3 % (11.6-15.6)
[2018-12-22] MEDS ORDERED: SODIUM CHLORIDE 500 ML IV ONE (09:26)
[2018-12-22] MEDS ORDERED: ACETAMINOPHEN 325 MG TABLET (FP) PO ONE (09:30)
[2018-12-22] MEDS ORDERED: DEXAMETHASONE SODIUM PHOSPHATE 20 MG, DIPHENHYDRAMINE 25 MG in SODIUM CHLORIDE 100 ML IVPB ONE (09:30)
[2018-12-22] MEDS ORDERED: SODIUM CHLORIDE IVPB ONE ×2 (10:00→10:39)
[2018-12-22] MEDS ORDERED: RITUXIMAB IVPB ONE ×2 (10:00→10:39)
[2018-12-22 10:04] LABS: ALBUMIN 3.7 g/dl (3.4-5.0); ALK PHOS 114 U/L (45-117); ANION GAP 8 MMOL/L (8-16); BILIRUBIN,DIRECT 0.2 mg/dL (0.0-0.2); BILIRUBIN,TOTAL 0.4 mg/dL (0.2-1); BLOOD UREA NITROGEN 17 mg/dL (7-18); CALCIUM 8.8 mg/dL (8.5-10.1); CHLORIDE 107 mmol/L (98-107); CO2 24 mmol/L (21-32); CREATININE 0.5 mg/dL (0.55-1.3); GLUCOSE,RANDOM 145 mg/dL (74-106); POTASSIUM 4.3 mmol/L (3.5-5.1); SGOT/AST 22 U/L (15-37); SGPT/ALT 29 U/L (13-61); SODIUM 138 mmol/L (136-145); TOT PROT 6.8 g/dl (6.4-8.2)
[2018-12-22 10:30] LABS: LDH 339 U/L (84-246)
[2018-12-22 18:15] VITALS: TEMP 97.6
[2018-12-22 18:16] VITALS: BP 114/61; PULSE 62
== END 2018-12-22 16:15 | disposition home or self-care (01) ==
LOC: JONCCHEMO 07:00 → J7W 10:07 → JONCCHEMO 16:15
PROVIDERS: ATTEND Internal Medicine Hematology & Oncology
DX: Z51.11 Encounter for antineoplastic chemotherapy (principal); C85.83 Other specified types of non-Hodgkin lymphoma, intra-abdominal lymph nodes
CPT/HCPCS: 36415; 80053; 80076; 83615; 83735; 84550; 85025; 96361; 96367; 96375; 96413; 96415; J7030; J9312

== ENCOUNTER 2018-12-29 07:32 | Day surgery (SDC) | payer OTHER ==
[2018-12-29] MEDS ORDERED: SODIUM CHLORIDE 1,000 ML IV ONE (08:00)
[2018-12-29 09:19] LABS: BASO % 0.3 % (0-2.0); EOS % 2.5 % (0-4.5); HEMATOCRIT 40.7 % (32.4-45.2); HEMOGLOBIN 13.7 GM/dL (10.7-15.3); LYMPH % 24.9 % (8-40); MCH 32.8 pg (25.7-33.7); MCHC 33.6 g/dl (32.0-36.0); MEAN CELL VOLUME 97.7 fl (80-96); MEAN PLT VOLUME 10.5 fl (7.5-11.1); NEUT % 61.3 % (42.8-82.8); PLATELET COUNT 272 K/MM3 (134-434); RBC 4.16 M/mm3 (3.60-5.2); RDW 14.8 % (11.6-15.6); WHITE BLOOD COUNT 4.3 K/mm3 (4.0-10.0)
[2018-12-29] MEDS ORDERED: DEXAMETHASONE SODIUM PHOSPHATE 20 MG, DIPHENHYDRAMINE 25 MG in SODIUM CHLORIDE 100 ML IVPB ONE (09:30)
[2018-12-29] MEDS ORDERED: ACETAMINOPHEN 325 MG TABLET (FP) PO ONE (09:30)
[2018-12-29 09:54] LABS: ALBUMIN 3.6 g/dl (3.4-5.0); ALK PHOS 126 U/L (45-117); ANION GAP 8 MMOL/L (8-16); BILIRUBIN,TOTAL 0.5 mg/dL (0.2-1); BLOOD UREA NITROGEN 15 mg/dL (7-18); CALCIUM 8.9 mg/dL (8.5-10.1); CHLORIDE 108 mmol/L (98-107); CO2 25 mmol/L (21-32); CREATININE 0.6 mg/dL (0.55-1.3); GLUCOSE,RANDOM 194 mg/dL (74-106); LDH 180 U/L (84-246); POTASSIUM 4.1 mmol/L (3.5-5.1); SGOT/AST 22 U/L (15-37); SGPT/ALT 40 U/L (13-61); SODIUM 141 mmol/L (136-145); TOT PROT 6.6 g/dl (6.4-8.2)
[2018-12-29] MEDS ORDERED: RITUXIMAB IVPB ONE (10:00)
[2018-12-29] MEDS ORDERED: SODIUM CHLORIDE IVPB ONE (10:00)
[2018-12-29 13:57] VITALS: TEMP 98.2
[2018-12-29 14:18] VITALS: BP 135/57; PULSE 68
== END 2018-12-29 14:30 | disposition home or self-care (01) ==
LOC: JONCCHEMO 07:32 → J7W 10:25 → JONCCHEMO 14:30
PROVIDERS: ATTEND Internal Medicine Hematology & Oncology
DX: Z51.11 Encounter for antineoplastic chemotherapy (principal); C85.83 Other specified types of non-Hodgkin lymphoma, intra-abdominal lymph nodes
CPT/HCPCS: 36415; 80053; 83615; 84550; 85025; 96361; 96367; 96375; 96413; 96415; J7030; J9312

== ENCOUNTER 2019-01-05 07:00 | Day surgery (SDC) | payer OTHER ==
[2019-01-05] MEDS ORDERED: SODIUM CHLORIDE 1,000 ML IV ONE (08:00)
[2019-01-05] MEDS ORDERED: DEXAMETHASONE SODIUM PHOSPHATE 20 MG, DIPHENHYDRAMINE 25 MG in SODIUM CHLORIDE 100 ML IVPB ONE (09:30)
[2019-01-05 09:41] LABS: BASO % 0.6 % (0-2.0); EOS % 2.8 % (0-4.5); HEMATOCRIT 41.1 % (32.4-45.2); HEMOGLOBIN 13.6 GM/dL (10.7-15.3); LYMPH % 26.9 % (8-40); MCH 32.5 pg (25.7-33.7); MEAN CELL VOLUME 98.5 fl (80-96); MEAN PLT VOLUME 10.6 fl (7.5-11.1); MONO % 13.9 % (3.8-10.2); NEUT % 55.8 % (42.8-82.8); PLATELET COUNT 273 K/MM3 (134-434); RBC 4.17 M/mm3 (3.60-5.2); RDW 14.6 % (11.6-15.6); WHITE BLOOD COUNT 3.8 K/mm3 (4.0-10.0)
[2019-01-05] MEDS ORDERED: SODIUM CHLORIDE IVPB ONE (10:00)
[2019-01-05] MEDS ORDERED: RITUXIMAB IVPB ONE (10:00)
[2019-01-05] MEDS ORDERED: ACETAMINOPHEN 325 MG TABLET (FP) PO ONE (10:15)
[2019-01-05 12:09] LABS: ALBUMIN 3.4 g/dl (3.4-5.0); ALK PHOS 141 U/L (45-117); ANION GAP 2 MMOL/L (8-16); BILIRUBIN,TOTAL 0.4 mg/dL (0.2-1); BLOOD UREA NITROGEN 17 mg/dL (7-18); CALCIUM 8.7 mg/dL (8.5-10.1); CHLORIDE 108 mmol/L (98-107); CO2 28 mmol/L (21-32); CREATININE 0.5 mg/dL (0.55-1.3); GLUCOSE,RANDOM 110 mg/dL (74-106); POTASSIUM 4.2 mmol/L (3.5-5.1); SGOT/AST 29 U/L (15-37); SGPT/ALT 66 U/L (13-61); SODIUM 139 mmol/L (136-145); TOT PROT 6.5 g/dl (6.4-8.2); URIC ACID 2.8 mg/dL (2.6-7.2)
[2019-01-05 14:18] VITALS: BP 131/60; PULSE 73; TEMP 97.9
== END 2019-01-05 14:20 | disposition home or self-care (01) ==
LOC: JONCCHEMO 07:00 → J7W 09:11 → JONCCHEMO 14:20
PROVIDERS: ATTEND Internal Medicine Hematology & Oncology
DX: Z51.11 Encounter for antineoplastic chemotherapy (principal); C85.83 Other specified types of non-Hodgkin lymphoma, intra-abdominal lymph nodes
CPT/HCPCS: 36415; 80053; 84550; 85025; 96361; 96367; 96375; 96413; 96415; J7030; J9312

== ENCOUNTER 2019-07-02 05:30 | Day surgery (SDC) | payer OTHER ==
[2019-07-02] MEDS ORDERED: SODIUM CHLORIDE 250 ML IV ONE ×3 (10:30→14:00)
[2019-07-02 11:00] LABS: BASO % 0.9 % (0-2.0); EOS % 1.7 % (0-4.5); HEMATOCRIT 42.7 % (32.4-45.2); HEMOGLOBIN 14.1 GM/dL (10.7-15.3); LYMPH % 31.1 % (8-40); MCH 30.8 pg (25.7-33.7); MCHC 32.9 g/dl (32.0-36.0); MEAN CELL VOLUME 93.5 fl (80-96); MEAN PLT VOLUME 10.8 fl (7.5-11.1); MONO % 12.8 % (3.8-10.2); NEUT % 53.5 % (42.8-82.8); PLATELET COUNT 285 K/MM3 (134-434); RBC 4.56 M/mm3 (3.60-5.2); RDW 13.9 % (11.6-15.6); WHITE BLOOD COUNT 5.3 K/mm3 (4.0-10.0)
[2019-07-02] MEDS ORDERED: DEXAMETHASONE INJECTION 20 MG in DEXTROSE 5%-WATER - 50 ML IVPB ONE (11:00)
[2019-07-02] MEDS ORDERED: diphenhydrAMINE HCL 25 MG CAPSULE (FP) PO ONE (11:00)
[2019-07-02] MEDS ORDERED: ACETAMINOPHEN 325 MG TABLET (FP) PO ONE (11:00)
[2019-07-02] MEDS ORDERED: RITUXIMAB IVPB ONE (11:30)
[2019-07-02] MEDS ORDERED: SODIUM CHLORIDE IVPB ONE (11:30)
[2019-07-02 12:20] LABS: ALBUMIN 3.6 g/dl (3.4-5.0); ALK PHOS 153 U/L (45-117); ANION GAP 26 MMOL/L (8-16); BILIRUBIN,TOTAL 0.6 mg/dL (0.2-1); BLOOD UREA NITROGEN 15.5 mg/dL (7-18); CHLORIDE 112 mmol/L (98-107); CREATININE 0.6 mg/dL (0.55-1.3); GLUCOSE,RANDOM 147 mg/dL (74-106); POTASSIUM 4.5 mmol/L (3.5-5.1); SGOT/AST 30 U/L (15-37); SGPT/ALT 63 U/L (13-61); SODIUM 140 mmol/L (136-145); TOT PROT 6.7 g/dl (6.4-8.2)
[2019-07-02 16:22] VITALS: TEMP 98.2
[2019-07-02 17:22] VITALS: BP 131/74; PULSE 74
== END 2019-07-02 17:22 | disposition home or self-care (01) ==
LOC: JONCCHEMO 05:30 → J7W 11:22 → JONCCHEMO 17:22
PROVIDERS: ATTEND Internal Medicine Hematology & Oncology
DX: Z51.11 Encounter for antineoplastic chemotherapy (principal); C85.83 Other specified types of non-Hodgkin lymphoma, intra-abdominal lymph nodes; I48.91 Unspecified atrial fibrillation; D69.6 Thrombocytopenia, unspecified
CPT/HCPCS: 36415; 80053; 85025; 96361; 96375; 96413; 96415; J1100; J7030; J9312

== ENCOUNTER → 2019-09-26 | Day surgery (SDC) | payer OTHER ==
[~2019-09-26] MED LIST: ACETAMINOPHEN 325 MG TABLET (FP) PO ONE; RITUXIMAB IVPB ONE; SODIUM CHLORIDE 1,000 ML IV ONE; SODIUM CHLORIDE IVPB ONE; diphenhydrAMINE HCL 25 MG CAPSULE (FP) PO ONE
[2019-09-26 10:19] LABS: BASO % 0.9 % (0-2.0); HEMATOCRIT 46.8 % (32.4-45.2); HEMOGLOBIN 15.7 GM/dL (10.7-15.3); LYMPH % 29.1 % (8-40); MCH 31.1 pg (25.7-33.7); MCHC 33.5 g/dl (32.0-36.0); MEAN CELL VOLUME 92.9 fl (80-96); MEAN PLT VOLUME 10.9 fl (7.5-11.1); MONO % 13.2 % (3.8-10.2); NEUT % 54.8 % (42.8-82.8); PLATELET COUNT 281 K/MM3 (134-434); RBC 5.03 M/mm3 (3.60-5.2); RDW 13.4 % (11.6-15.6); WHITE BLOOD COUNT 5.9 K/mm3 (4.0-10.0)
[2019-09-26 10:32] LABS: BLOOD UREA NITROGEN 13.4 mg/dL (7-18); CALCIUM 9.3 mg/dL (8.5-10.1); CREATININE 0.6 mg/dL (0.55-1.3); POTASSIUM 4.6 mmol/L (3.5-5.1)
[2019-09-26 10:38] LABS: ALBUMIN 3.8 g/dl (3.4-5.0); BILIRUBIN,DIRECT 0.2 mg/dL (0.0-0.2); BILIRUBIN,TOTAL 0.5 mg/dL (0.2-1); MAGNESIUM 2.3 mg/dL (1.8-2.4); URIC ACID 3.1 mg/dL (2.6-7.2)
[2019-09-27 13:07] LABS: IGA IMMUNOGLOBULIN 308 mg/dL (87-352); IGG QN IMMUNOGLOBULIN 893 mg/dL (700-1600); IGM QN SERUM 147 mg/dL (26-217)
== END | disposition home or self-care (01) ==
LOC: JONCCHEMO 05:30
PROVIDERS: ATTEND Internal Medicine Hematology & Oncology
DX: Z53.8 Procedure and treatment not carried out for other reasons (principal)
CPT/HCPCS: 36415; 80048; 80076; 82784; 83615; 83735; 84550; 85025; 86317; 86705; 86706; 96365